=== PATIENT | male | born 1960 | race Caucasian/White ===

== ENCOUNTER 2022-05-04 16:13 | Emergency (ER) | payer BC, OTHER ==
[~2022-05-04] VITALS: Ht 175.2 cm; Wt 84.1 kg
[2022-05-04] MEDS ORDERED: NS IV 1000 ML 1,000 ML IV STA (16:31)
[2022-05-04] MEDS ORDERED: RT-ALBUTEROL/IPRATROPIUM 3 ML (DUONEB) VIAL INH STA (16:31)
[2022-05-04 16:36] LABS: BASOPHILS # (AUTO) 0.1 10^3/uL (0.0-0.1); BASOPHILS % (AUTO) 1 % (0-10); EOSINOPHILS # (AUTO) 0.1 10^3/uL (0.0-0.3); EOSINOPHILS % (AUTO) 2 % (0-10); HEMATOCRIT 47 % (40-54); HEMOGLOBIN 16.3 g/dL (13.3-17.7); LYMPHOCYTES % (AUTO) 14 % (12-44); MEAN CORPUSCULAR HEMOGLOBIN 30 pg (25-34); MEAN CORPUSCULAR HGB CONC 35 g/dL (32-36); MEAN CORPUSCULAR VOLUME 86 fL (80-99); MONOCYTES # (AUTO) 1.1 10^3/uL (0.0-1.0); MONOCYTES % (AUTO) 15 % (0-12); NEUTROPHILS % (AUTO) 68 % (42-75); PLATELET COUNT 181 10^3/uL (130-400); WHITE BLOOD COUNT 7.4 10^3/uL (4.3-11.0)
[2022-05-04 16:37] LABS: PROTHROMBIN TIME PATIENT 13.2 SEC (12.2-14.7)
--- NOTE | 2022-05-04 16:42 | ED General ---
General Chief Complaint: Respiratory Problems Stated Complaint: CHEST PAIN; SOB Nursing Triage Note: Patient c/o shortness of breath x 3 days, Lt. sided chest pain 1-3 wks, vomiting 2 days ago, and Diarrhea. Pt. states he has had a dozen diarrhea stools in last 24 hrs. Pt. denies any fevers, being light-headed, or pain that goes to his back. Pt. states he mainly has pain when he is moving. Pt. states he does have a cardiac Hx. Source of Information: Patient, Family History of Present Illness Date Seen by Provider: May 04, 2022 Time Seen by Provider: 16:16 Initial Comments 61 yo male presenting with complaints of shortness of breath with cough x 3 days. He has had intermittent chest pain on the left and center of chest with exertion for the last 3-4 weeks. He had some diarrhea and had vomited on Thursday. He states some of his symptoms have been going on for months but his family finally forced him to come to the ED to be evaluated. He reports having a heart attack at the first of this year and had to go to [place] for cardiac stents. He states that the chest pains he has been having do not feel like what he had in February with his CA and stent placement. He denies fevers but has had chills. Severity: Moderate Modifying Factors: worse with Movement Associated Systoms: No Chest Pain (with cough and exertion); Cough; No Diaphoresis, No Fever/Chills, No Loss of Appetite, No Malaise; Nausea/Vomiting ( Thursday night); No Seizure; Shortness of Air (with coughing and exertion); No Syncope, No Weakness Allergies and Home Medications Allergies Coded Allergies: No Known Drug Allergies (Unverified Allergy, Mild, 11/06/08) Patient Home Medication List Home Medication List Reviewed: Yes Azithromycin (Azithromycin) 500 Mg Tablet, 500 MG PO DAILY Prescribed by: HALIE NEWELL on 05/04/221815 Prednisone (Prednisone) 20 Mg Tab, 40 MG PO DAILY Prescribed by: HALIE NEWELL on 05/04/221815 Review of Systems Review of Systems Constitutional: chills; No fever EENTM: no symptoms reported Respiratory: see HPI Cardiovascular: see HPI Gastrointestinal: see HPI, diarrhea, nausea, vomiting Genitourinary: No decreased output, No dysuria Musculoskeletal: no symptoms reported Skin: No rash Psychiatric/Neurological: No Symptoms Reported Past Ypppyrn-Ecktsf-Rmqgey Hx Patient Social History Tobacco Use?: Yes Smokeless Tobacco Frequency: Current Everyday User Use of E-Cig and/or Vaping dev: No Substance use?: No Alcohol Use?: Yes Past Medical History Surgery/Hospitalization HX: CAD, Cardiac stents x 10 February 2022 Reproductive Disorders: No Physical Exam Vital Signs Vital Signs - First Documented 05/04/22 16:13 Temp 37.4 Pulse 86 Resp 16 B/P (MAP) 165/91 (115) Pulse Ox 98 O2 Delivery Room Air Capillary Refill : Height, Weight, BMI Height: '" Weight: lbs. oz. kg; 27.00 BMI Method: General Appearance: No Apparent Distress, WD/WN HEENT: PERRL/EOMI, Pharynx Normal Neck: Full Range of Motion, Normal Inspection, Non Tender, Supple Respiratory: Chest Non Tender, Decreased Breath Sounds, Rhonci, Wheezing Cardiovascular: Regular Rate, Rhythm, Normal Peripheral Pulses Gastrointestinal: Normal Bowel Sounds, No Pulsatile Mass, Non Tender, Soft Extremity: Normal Capillary Refill, Normal Inspection, No Calf Tenderness, No Pedal Edema Neurologic/Psychiatric: Alert, Oriented x3 Skin: Normal Color, Warm/Dry Progress/Results/Core Measures Suspected Sepsis SIRS Temperature: Pulse: 86 Respiratory Rate: 16 Laboratory Tests 05/04/22 16:17: White Blood Count 7.4 Blood Pressure 165 /91 Mean: 115 Laboratory Tests 05/04/22 16:17: Creatinine 0.92, INR Comment 1.0, Platelet Count 181, Total Bilirubin 0.5 Results/Orders Lab Results Laboratory Tests Test 05/04/22 16:17 05/04/22 16:38 Range/Units White Blood Count 7.4 4.3-11.0 10^3/uL Red Blood Count 5.43 4.30-5.52 10^6/uL Hemoglobin 16.3 13.3-17.7 g/dL Hematocrit 47 40-54 % Mean Corpuscular Volume 86 80-99 fL Mean Corpuscular Hemoglobin 30 25-34 pg Mean Corpuscular Hemoglobin Concent 35 32-36 g/dL Red Cell Distribution Width 13.6 10.0-14.5 % Platelet Count 181 130-400 10^3/uL Mean Platelet Volume 10.0 9.0-12.2 fL Immature Granulocyte % (Auto) 0 % Neutrophils (%) (Auto) 68 42-75 % Lymphocytes (%) (Auto) 14 12-44 % Monocytes (%) (Auto) 15 H 0-12 % Eosinophils (%) (Auto) 2 0-10 % Basophils (%) (Auto) 1 0-10 % Neutrophils # (Auto) 5.0 1.8-7.8 10^3/uL Lymphocytes # (Auto) 1.0 1.0-4.0 10^3/uL Monocytes # (Auto) 1.1 H 0.0-1.0 10^3/uL Eosinophils # (Auto) 0.1 0.0-0.3 10^3/uL Basophils # (Auto) 0.1 0.0-0.1 10^3/uL Immature Granulocyte # (Auto) 0.0 0.0-0.1 10^3/uL Prothrombin Time 13.2 12.2-14.7 SEC INR Comment 1.0 0.8-1.4 Activated Partial Thromboplast Time 33 24-35 SEC Sodium Level 128 L 135-145 MMOL/L Potassium Level 3.7 3.6-5.0 MMOL/L Chloride Level 94 L 98-107 MMOL/L Carbon Dioxide Level 19 L 21-32 MMOL/L Anion Gap 15 H 5-14 MMOL/L Blood Urea Nitrogen 12 7-18 MG/DL Creatinine 0.92 0.60-1.30 MG/DL Estimat Glomerular Filtration Rate 95 BUN/Creatinine Ratio 13 Glucose Level 93 70-105 MG/DL Calcium Level 8.8 8.5-10.1 MG/DL Corrected Calcium 8.6 8.5-10.1 MG/DL Magnesium Level 1.9 1.6-2.4 MG/DL Total Bilirubin 0.5 0.1-1.0 MG/DL Aspartate Amino Transf (AST/SGOT) 31 5-34 U/L Alanine Aminotransferase (ALT/SGPT) 29 0-55 U/L Alkaline Phosphatase 64 40-136 U/L Troponin I < 0.30 <0.30 NG/ML Pro-B-Type Natriuretic Peptide 240.0 H <125.0 PG/ML Total Protein 7.1 6.4-8.2 GM/DL Albumin 4.2 3.2-4.5 GM/DL Lipase 59 8-78 U/L Influenza Type A (RT-PCR) Not Detected Not Detecte Influenza Type B (RT-PCR) Not Detected Not Detecte SARS-CoV-2 RNA (RT-PCR) Not Detected Not Detecte My Orders Orders - HALIE NEWELL MD Cbc With Automated Diff (05/04/22 16:31) Magnesium (05/04/22 16:31) Chest 1 View Ap/Pa Only (05/04/22 16:31) Ekg Tracing (05/04/22 16:31) Comprehensive Metabolic Panel (05/04/22 16:31) Protime With Inr (05/04/22 16:31) Partial Thromboplastin Time (05/04/22 16:31) O2 (05/04/22 16:31) Monitor-Rhythm Ecg Trace Only (05/04/22 16:31) Ed Iv/Invasive Line Start (05/04/22 16:31) Lipase (05/04/22 16:31) Troponin I Fs (05/04/22 16:31) Probnp Fs (05/04/22 16:31) Ns Iv 1000 Ml (Sodium Chloride 0.9%) (05/04/22 16:31) Albuterol/Ipra Inhalation Soln (Duoneb I (05/04/22 16:31) Svn Small Volume Nebulizer (05/04/22 16:31) Covid 19 Inhouse Test (05/04/22 16:31) Influenza A And B By Pcr (05/04/22 16:31) Isolation Central Supply Req (05/04/22 16:31) Ceftriaxone 1 Gm Pre-Mix (Rocephin 1 Gm (05/04/22 17:29) Azithromycin Tablet (Zithromax Tablet) (05/04/22 17:29) Methylprednisolone Sod Succ (Solu-Medrol (05/04/22 17:45) Vital Signs/I&O 05/04/22 05/04/22 05/04/22 16:13 16:56 18:17 Temp 37.4 37.4 Pulse 86 72 Resp 16 16 B/P (MAP) 165/91 (115) 142/78 Pulse Ox 98 98 98 O2 Delivery Room Air Room Air Room Air Capillary Refill : Blood Pressure Mean: 115 Progress Note #1: Progress Note Potential diagnosis of myocardial infarction, pneumonia, congestive heart failure, COVID, influenza, COPD, viral syndrome, pulmonary embolism, aortic dissection. Obtain electrocardiogram to evaluate for possible ischemic changes. Patient denies having any pain resting here in the emergency department in the bed. Placed on cardiac telemetry monitoring and my initial interpretation shows sinus rhythm with heart rate in the 80s. Obtain peripheral IV access and send labs for complete blood count, comprehensive metabolic profile, lipase, troponin, proBNP, coagulation factors, nasal swab for COVID and influenza. Chest x-ray to look for pneumonia, effusion, mass. Administer normal saline 1 L IV fluid bolus for hydration. On my interpretation of his electrocardiogram he does not show any acute ST elevation or ischemic change. He has a prior tracing from 2008 that appears similar to catracho's electrocardiogram. We will administer DuoNeb breathing treatment to try and help with the wheezing and coughing. Progress Note #2: Progress Note His complete blood count came back showing his white blood cell count was not elevated at 7.4. He was not anemic with a hemoglobin of 16.3. His comprehensive metabolic profile showed mild hyponatremia with a sodium of 128. He had normal renal function with a normal creatinine. His troponin was negative as it was less than 0.3. His proBNP was not elevated at 240. His lipase was not elevated at 59. This would go against pancreatitis or acute congestive heart failure. On my review of his 1 view chest x-ray he has increased perihilar markings more so on the right. I did not appreciate an effusion or pneumothorax Progress Note #3: Progress Note I reviewed the radiologist report on the chest x-ray and they read it is as pneumonia on the right perihilar area. I updated patient and family about the labs looking okay and not showing any signs of heart attack or heart damage. He has pneumonia on the x-ray and will start him on Rocephin 1 g IV and Zithromax 500 mg p.o. here in the ED. Finish out a course of Zithromax of 500 mg p.o. daily for pneumonia. Also give Solu-M edrol 125 mg IV x1 to help with wheezing and cough. Discharged on 3 days of prednisone burst 40 mg p.o. daily. Advised to check back with primary care provider and/or cardiology about his recurrent chest pain with exertion and pneumonia. ECG Initial ECG Impression Date: May 04, 2022 Initial ECG Impression Time: 16:23 Initial ECG Rate: 88 Initial ECG Rhythm: Normal Sinus Initial ECG Comparisson: Unchanged (November 06, 2008) Comment On my personal interpretation and review of his electrocardiogram shows sinus rhythm with a heart rate of 88 bpm. OH interval 163 ms. There is no acute ST elevation. QT interval 336 ms with a QTc interval 381 ms. Compared to prior tracing from October 29 there is no acute change Diagnostic Imaging Diagonstic Imaging: Xray Plain Films/CT/US/NM/MRI: chest Comments [facility] [place], [place] NAME: BRUNA LEAHY [facility] REC#: [id number] PT STATUS: REG ER : 1960 PHYSICIAN: HALIE NEWELL MD ADMIT DATE: 05/04/22/ER FS Signed Date of Exam:05/04/22 CHEST 1 VIEW AP/PA ONLY Chest 1 view AP/PA only Indication: Cough and shortness of breath. Comparison: None available. Findings: Patchy consolidations in the right perihilar region. No pleural effusion or pneumothorax. Normal heart size. Impression: 1. Right perihilar consolidations are likely due to pneumonia. 2. Findings are in agreement with the preliminary report. Dictated by: Dictated on workstation # [id number] Dict: 05/04/22 1644 Trans: 05/04/221653 [facility] [id number] Interpreted by: JANNIE VILLARREAL MD Electronically signed by: JANNIE VILLARREAL MD 05/04/221653 Reviewed: Reviewed by Me Departure Impression Primary Impression: Pneumonia of right lower lobe due to infectious organism Additional Impression: Atypical chest pain Disposition: 01 HOME, SELF-CARE Condition: Stable Departure-Patient Inst. Decision time for Depature: 18:14 Referrals: LORIE FARFAN MD (PCP) Primary Care Physician Patient Instructions: Pneumonia, Adult ED, Chest Pain, Adult ED Add. Discharge Instructions: Make sure to stay well-hydrated and drink plenty of fluids. Take the full course of antibiotics to treat for the pneumonia. The steroids will help with cough and congestion as well as the chest pain. You could use Mucinex [id number] to help thin out any cough and congestion. 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 All discharge instructions reviewed with patient and/or family. Voiced understanding. Scripts Prednisone (Prednisone) 20 Mg Tab 40 MG PO DAILY for Pneumonia/Wheezing for 3 Days, #6 TAB 0 Refills Prov: HALIE NEWELL MD 05/04/22 Azithromycin (Azithromycin) 500 Mg Tablet 500 MG PO DAILY for pneumonia for 4 Days, #4 TAB 0 Refills Prov: HALIE NEWELL MD 05/04/22 HALIE NEWELL MD May 04, 2022 16:42
[2022-05-04 16:44] LABS: ALBUMIN 4.2 GM/DL (3.2-4.5); BILIRUBIN,TOTAL 0.5 MG/DL (0.1-1.0); CALCIUM 8.8 MG/DL (8.5-10.1); CREATININE SERUM 0.92 MG/DL (0.60-1.30); MAGNESIUM 1.9 MG/DL (1.6-2.4); POTASSIUM 3.7 MMOL/L (3.6-5.0); TOTAL PROTEIN 7.1 GM/DL (6.4-8.2)
--- NOTE | 2022-05-04 16:52 | Diagnostic Imaging Report ---
Chest 1 view AP/PA only Indication: Cough and shortness of breath. Comparison: None available. Findings: Patchy consolidations in the right perihilar region. No pleural effusion or pneumothorax. Normal heart size. Impression: 1. Right perihilar consolidations are likely due to pneumonia. 2. Findings are in agreement with the preliminary report. Dictated by: Dictated on workstation # [id number]
[2022-05-04] MEDS ORDERED: cefTRIAXone 1 GM PRE-MIX 50 ML IV STA (17:29)
[2022-05-04] MEDS ORDERED: AZITHROMYCIN 250 MG TAB (ZITHROMAX) PO STA (17:29)
[2022-05-04] MEDS ORDERED: methylPREDNISolone 125 MG (Solu-MEDROL) VIAL IVP STA (17:45)
[2022-05-04] MEDS ORDERED: PRD20T PO (18:16)
[2022-05-04] MEDS ORDERED: AZIT500T9 PO (18:16)
[2022-05-04 18:17] VITALS: BP 142/78
== END 2022-05-04 18:18 | disposition home or self-care (01) ==
LOC: EDUNIT# 16:13 → ER FS 16:15
DX: J16.8 Pneumonia due to other specified infectious organisms (principal); E87.1 Hypo-osmolality and hyponatremia; F17.200 Nicotine dependence, unspecified, uncomplicated; Z20.822 Contact with and (suspected) exposure to COVID-19
CPT/HCPCS: 36415; 71045; 80053; 83690; 83735; 83880; 84484; 85025; 85610; 85730; 87636; 93005; 93041; 94640